=== PATIENT | male | born 1995 | race Caucasian/White ===

== ENCOUNTER 2017-01-31 10:41 | Inpatient (IN) | payer OTHER ==
[~2017-01-31] VITALS: Ht 175.3 cm; Wt 86.4 kg
[2017-01-31 13:08] LABS: MEAN CORPUSCULAR HEMOGLOBIN 33.2 pg (27.0-33.0); MEAN CORPUSCULAR HGB CONC 35.9 g/dl (32.0-36.5); MEAN CORPUSCULAR VOLUME 92.4 fl (80.0-96.0); RED CELL DISTRIBUTION WIDTH 12.8 % (11.5-14.5); WHITE BLOOD COUNT 9.4 K/mm3 (4.0-10.0)
[2017-01-31 13:34] LABS: ALBUMIN 4.2 GM/DL (3.2-5.2); ALKALINE PHOSPHATASE 120 U/L (45-117); ALT/SGPT 42 U/L (12-78); ANION GAP 8 MEQ/L (8-16); AST/SGOT 20 U/L (15-37); BILIRUBIN,DIRECT 0.1 MG/DL (0.0-0.2); BILIRUBIN,TOTAL 0.4 MG/DL (0.2-1.0); BLOOD UREA NITROGEN 11 MG/DL (7-18); CALCIUM LEVEL 8.7 MG/DL (8.5-10.1); CARBON DIOXIDE LEVEL 26 MEQ/L (21-32); CHLORIDE LEVEL 104 MEQ/L (98-107); CREATININE FOR GFR 0.89 MG/DL (0.70-1.30); GLOMERULAR FILTRATION RATE > 60.0 (>60); GLUCOSE, FASTING 95 MG/DL (70-105); POTASSIUM SERUM 4.3 MEQ/L (3.5-5.1); SODIUM LEVEL 138 MEQ/L (136-145); TOTAL PROTEIN 7.2 GM/DL (6.4-8.2)
[2017-01-31 15:10] LABS: METHADONE URINE NEGATIVE (NEGATIVE)
[2017-01-31 15:27] VITALS: BP 137/75
[2017-01-31] MEDS ORDERED: MAALOX 30 ML SUSP *UDC PO PRN (16:30)
[2017-01-31] MEDS ORDERED: ACETAMINOPHEN TAB 650MG DOSE (2X325MG) PO PRN (16:30)
[2017-01-31] MEDS ORDERED: MOM 30ML SUSPENSION UDC PO PRN (16:30)
[2017-02-01 06:22] VITALS: BP 119/79
--- NOTE | 2017-02-01 09:55 | HPEPDOC ---
Medical History and Physical Date of Admission Jan 31, 2017 at 14:19 History and Physical PCP: [facility] ATTENDING: Dr. Timoteo Fowler HPI: 21yoM admitted to [facility] for depressive disorder, being medically examined today. No acute medical complaints today. Denies any fevers, chills, weakness, fatigue, [place], CP, SOB, cough, palpitations, abdominal pain, N/V/D or changes in bowel or bladder habits. 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 ROS: As noted in HPI, otherwise 11pt ROS of systems reviewed and unremarkable. PE: GEN: 21 yo M, appears stated age. Well-nourished, well developed. No acute distress. Alert and oriented x 3. Pleasant, interactive. HEENT: Normocephalic, atraumatic. Pupils are equal, round, and reactive to light. Extraocular movements are intact. No nystagmus appreciated. Sclera are nonicteric. Conjunctiva without injection. Nose midline. Nasal turbinates without bogginess. EACs both patent BL. TMs both visualized and yuen with good cone of light, no bulging or erythema. No facial asymmetry. Moist mucous membranes. Dentition fair. Pharynx pink and moist, no cobblestoning. Neck supple , trachea midline. No lymphadenopathy or thyromegaly appreciated. CHEST: Regular rate and rhythm, +S1, +S2 LUNGS: Clear to auscultation bilaterally. No wheezes, rales, or rhonchi. Breathing appears symmetric and easy. Patient is speaking in full sentences. No accessory muscle use. ABD: Round, soft, non-tender, non-distended. +Bowel sounds throughout. No rebound or guarding. No costovertebral angle tenderness. EXT: Pulses 2+ bilaterally dorsalis pedis and radial. No lower extremity edema appreciated. SKIN: [place], dry, warm. Capillary refill <2sec. No rashes. NEURO: Alert and oriented x 3. Cranial nerves III-XII are intact. No focal deficits appreciated. EKG: Pending. A&P: 21yoM admitted to [facility] for depressive disorder 1. Psych. Plan per Psychiatry. Obtain baseline EKG to assure the safety of psychiatric medications as they can prolong the QT interval. 2. Follow up with PCP on discharge. 3. Staff member Jamie present throughout exam. Vital Signs Vital Signs Label Value Date Time Patient Temperature 96.8 degrees F 02/01/17621 Temperature Source Skin 02/01/17621 Pulse 79 02/01/17621 Respiratory Rate 16 bpm 02/01/17621 Blood Pressure Assessment 119/79 (92) 02/01/17621 Bedside Pulse Oximetry 18 % 01/31/17 1527 Bedside Pulse Oximetry 99 % 01/31/17 1450 Item Value Date Time Oxygen Delivery Method Room Air 02/01/17621 Oxygen Delivery Method Room Air 01/31/17 1450 Laboratory Data Labs 24H Laboratory Tests 2 01/31/17 12:48: Acetaminophen Level < 2.0L, Aspartate Amino Transf (AST/SGOT) 20, Alanine Aminotransferase (ALT/SGPT) 42, Alkaline Phosphatase 120H, Total Bilirubin 0.4, Direct Bilirubin 0.1, Albumin 4.2, Albumin/Globulin Ratio 1.40, Anion Gap 8, Calcium Level 8.7, Ethyl Alcohol Level < 0.003, Glomerular Filtration Rate > 60.0, Salicylates Level < 1.7L, Thyroid Stimulating Hormone (TSH) 1.770, Total Protein 7.2, Urine Amphetamines Screen NEGATIVE, Urine Benzodiazepines Screen NEGATIVE, Urine Opiates Screen NEGATIVE, Urine Barbiturates Screen NEGATIVE, Urine Cannabinoids Screen NEGATIVE, Urine Cocaine Metabolite Screen NEGATIVE, Urine Methadone Screen NEGATIVE, Urine Phencyclidine Screen NEGATIVE CBC/BMP Laboratory Tests 01/31/17 12:48 Red Blood Count 5.15, Mean Corpuscular Volume 92.4, Mean Corpuscular Hemoglobin 33.2 H, Mean Corpuscular Hemoglobin Concent 35.9, Red Cell Distribution Width 12.8 Home Medications No Active Prescriptions or Reported Meds Allergies Coded Allergies: No Known Allergies (Unverified , 01/31/17) Joselyn Vera Feb 01, 2017 09:55
--- NOTE | 2017-02-01 13:44 | HPEPDOC ---
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 Patient indicates he had planned to hang self noting, "I looked around my room for something strong enough to hold me but I couldn't find anything, then I considered cutting myself but I couldn't go through with it." Patient states this morning he was experiencing suicidal ideation with plan, did not report to work and [facility] lead section supervisor unlock the door and found him in his room at which time he reportedly admitting wanted to kill himself. Patient states he has been experiencing the following stressors: Providing financial support to parent and feeling he can no longer do so, mother going through divorce, tension with command, obligations of volunteer work, receiving article 15 for "minor negative counseling" incidents. When asked nature of counseling incidents patient states they're related to tardiness, failure to report, and another one he is unable to remember. According to [place] paperwork, patient has been concerned that his chain of command is attempting to Chapter him out and fears being discharged dishonorably. Patient also notes financial strain related to loans and has concerns about loss of rank in pay which may be associated with Chapter. Patient reports an exacerbation of the following symptoms over the past 2 weeks "suicidal ideation, depression, anxiety, hopelessness and helplessness, reduced sleep, increased appetite. Patient reports current anxiety level of 1/10, depression 6/10 (9/10 when at work), denies current suicidal and homicidal ideation, denies audiovisual hallucinations, and denies urge to engage in self-injurious behavior. Patient reports history of suicidal ideation 1 last fall, states suicidal ideation began while at [facility], indicates he had contemplated sitting in his truck in the cold to freeze. Patient endorses "some" discomfort in social settings, denies history of panic, impulse control problems and denies compulsive behavior. Patient denies history of agitation or aggression, denies unsanctioned violence, and denies having access to weapons at home. Patient denies symptoms of reexperiencing, avoidance , and hypervigilance, indicates mood is stable and denies periods of hypomania or donny. Patient reports recent increase in appetite, denies notable weight gain. Patient's indicates he experiences sleep maintenance problems, denies challenges with latency. Patient informs investigative writer while being treated at [facility] he was taking Wellbutrin XL 150 mg for approximately 5 months, indicates medication was effective and he denies medication side effects. Patient indicates he stopped taking medication approximately 3 months ago. 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 Patient informs investigative writer he feels his symptoms are directly related to work noting, I'm happy when I am off of work, when I'm volunteering, and when I'm with my girlfriend. I am miserable when I'm at work. " Patient notes that after exiting the [employer] he plans to pursue a career in criminal justice or study to be a filtering machine tender. PAST PSYCHIATRIC HISTORY: Prior Psychiatric Disorder: Adjustment disorder Outpatient Treatment: [facility], denies history of inpatient treatment Suicidal/Self injurious: Suicidal ideation with plan to freeze in car last fall denies history of SIB. Psychotropic Medication History: Wellbutrin XL ALLERGIES: Please see below. FAMILY PSYCHIATRIC HISTORY: Patient denies SOCIAL HISTORY: Patient indicates he was born and raised in the [facility], was raised by his father until age 14 and then was raised by his mother. Patient states he has one 12-year-old brother who lives with his mother, notes mother is in process of patient's stepfather. Patient denies history of abuse, trauma, or witnessing domestic violence in the home while growing up. 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 Patient is single, never , no children, has been in a relationship with his girlfriend for "a couple weeks," indicates relationship is going very well, states he is close to his mother, feels he has an adequate support system. SUBSTANCE ABUSE HISTORY: Patient denies history of substance abuse, states he rarely consumes alcohol noting he consumed half a glass of wine socially 2 weeks ago. Patient denies history of other substance use or abuse. PAST MEDICAL/SURGICAL HISTORY: Benign cyst removed from left rib cage, denies history of seizure or head injury. Patient states he has a history of fractured foot, has profile for no PT. Labs on admission indicate elevated MCH and alkaline phosphatase UDS negative VITAL SIGNS: B/P 119/79 P 79, R 16, T 96.8. MENTAL STATUS EXAMINATION: General appearance: Patient is a 21-year old male, who is pleasant, cooperative , well groomed, ambulates with steady gait, appears stated age. Speech: Spontaneous, of normal rate, rhythm, volume, coherent. Thought processes: Linear, goal-directed. Thought content: Logical, rational. Abstract reasoning and computation: Intact. Description of associations: Intact. Description of abnormal or psychotic thoughts: Denies any suicidal or homicidal ideation. Denies any auditory or visual hallucinations. Does not appear to be responding to internal stimuli. Is not expressing any bizarre or paranoid ideation.] Denies any preoccupation with violence and/or obsessions. Judgment: Poor. Insight: Poor. Orientation: Appears to be alert to situation and oriented to person, place and time of day Recent and remote memory: Intact. Attention span and concentration: Appear intact. Fund of knowledge: Adequate. 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 Patient had been active with [place] outpatient [facility] in past and was treated with Wellbutrin with good effect reported, discontinued medication and has not been seen in the outpatient environment for several months. Patient attributes his symptom and desire to to tension which in command, pending Chapter, and dissatisfaction with [employer] career. Patient is today requesting restart of antidepressant, is aware he also has sleep aid available to him if needed. Patient denies current suicidal and homicidal ideation and verbalizes awareness of how to access supportive services on unit if needed. Will monitor patient's response to medication, monitor for side effects, and will evaluate patient's safety, resolution of suicidal ideation, and discharge readiness. With regard to discharge, patient indicates he does not want to return to [place], however, verbalizes awareness that that will ultimately discharge plan will entail follow-up with [place] [facility]. PROBLEM LIST: Suicidal ideation Anxiety Depression Poor impulse control Ineffective coping Poor work satisfaction Financial strain Limited support INITIAL TREATMENT PLAN: 1. Patient was admitted on a 939 2. Complete history was obtained. 3. With patients permission, family will be contacted and database will be expanded. 4. Patients medication regimen will be reviewed and changed accordingly. 5. Patient will be provided with protected environment. 6. Patient will be treated with individual, group, and milieu therapies. 7. Patient will receive supportive psych-education. 8. Discharge planning will commence immediately. 9. Outpatient follow-up treatment will be strongly recommended. 10. The initial treatment plan will focus initially on: * Depression. * Risk for suicide ESTIMATED LENGTH OF STAY: 5-7 DAYS. TIME SPENT COUNSELING AND COORDINATING INITIAL CARE: 50 minutes. Medications No Active Prescriptions or Reported Meds Allergies Coded Allergies: No Known Allergies (Unverified , 01/31/17) Carla Mcintosh Feb 01, 2017 13:44
[2017-02-01 18:00] VITALS: BP 136/69
[2017-02-01] MEDS: buPROPion **XL** TABLET 150MG (WELLBUTRIN XL) PO SCH (20:12)
[2017-02-01] MEDS: traZODone 50 MG TAB PO PRN (20:12)
[2017-02-02 06:23] VITALS: BP 122/78
[2017-02-02] MEDS: buPROPion **XL** TABLET 150MG (WELLBUTRIN XL) PO SCH (08:14)
--- NOTE | 2017-02-02 17:04 | IPNPDOC ---
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 Patient has been visible on unit, isolates to room at times, is engaging selectively with peers, and is attending groups. At patient request, Wellbutrin XL has been restarted and patient states he feels medication is helpful in reducing symptoms of anxiety and depression. Patient rates current anxiety level as 1/10, depression 4/10, denies suicidal and homicidal ideation, denies audiovisual hallucinations and denies urge to engage in self-injurious behavior. Patient states his appetite is "balancing out," reports energy level remains low, reports challenges with concentration and focus, indicates sleep was improved last night with use of trazodone PRN. Patient states his girlfriend visited last night noting visit went well, informs science writer his family does not know he is in a psychiatric hospital. Patient reiterates today he wants to be released from the [employer], would like general under honorable discharge , does not wish to finish out his contract. Patient reiterates today that after exiting the [employer] he plans to pursue a career in criminal justice or study to be a hadoop application developer. VITAL SIGNS: See below. NEW TEST RESULTS: No new results. Labs on admission indicate elevated MCH and alkaline phosphatase. Patient has history of benign cyst removed from left rib cage, denies history of seizure or head injury. Patient states he has a history of fractured foot, has profile for no PT. UDS negative CURRENT MEDICATIONS: See below. MENTAL STATUS EXAMINATION: General appearance: Patient is a 21-year old male, who is pleasant, cooperative , well groomed, ambulates with steady gait, appears stated age. Speech: Spontaneous, of normal rate, rhythm, volume, coherent. Thought processes: Linear, goal-directed. Thought content: Logical, rational. Abstract reasoning and computation: Intact. Description of associations: Intact. Description of abnormal or psychotic thoughts: Denies any suicidal or homicidal ideation. Denies any auditory or visual hallucinations. Does not appear to be responding to internal stimuli. Is not expressing any bizarre or paranoid ideation. Denies any preoccupation with violence and/or obsessions. Judgment: Poor. Insight: Poor. Orientation: Appears to be alert to situation and oriented to person, place and time of day Recent and remote memory: Intact. Attention span and concentration: Appear intact. Fund of knowledge: Adequate. Mood: "I'm ok." Patient appears depressed, anxious, no mood lability noted Affect: Constricted.. 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 Patient has requested Wellbutrin XL restart, indicates medication is helping and he denies current side effects. Patient indicates he experienced insomnia last night related to starting Wellbutrin XL, apparently did not receive first dose until evening. Patient states he utilized trazodone for sleep , notes medication was effective, notes he experienced a.m. grogginess for approximately 20 minutes and symptoms went away. Patient denies suicidal and homicidal ideation and verbalizes awareness of how to access supportive services on the unit if needed. Will monitor patient's response to medication, monitor for side effects, and will evaluate patient's safety, resolution of suicidal ideation, and discharge readiness. With regard to discharge, patient indicates he does not want to return to [place], states today he would rather be chaptered and finish out the 5 months remaining on his contract. Patient remains aware that will ultimately discharge plan will entail follow-up with [facility]. MANAGEMENT PLAN: Continue Wellbutrin XL 150 mg po q m, trazodone 50 mg po hs PRN insomni Maintain safety precautions Patient to attend groups and participate in unit programming to develop coping strategies Engage patient in discharge planning process and arrange meeting with command to ensure safe discharge planning when appropriate Patient to follow up with [facility] upon discharge TIME SPENT: 35 minutes. Vital Signs Vital Signs Date Time Temp Pulse Resp B/P Pulse Ox O2 Delivery O2 Flow Rate FiO2 02/02/17 06:23 97.1 79 16 122/78 02/01/17 16:06 Room Air 01/31/17 15:27 18 Current Medications Current Medications Acetaminophen (Tylenol Tab) 650 mg Q6HP PRN PO HEADACHE or DISCOMFORT; Start at 16:30; Stop 03/02/17 at 16:29 Al Hydrox/Mg Hydrox/Simethicone (Mylanta) 30 ml Q4HP PRN PO HEARTBURN/ INDIGESTION; Start 01/31/17 at 16:30; Stop 03/02/17 at 16:29 Bupropion HCl (Wellbutrin Xl) 150 mg QAM PO Last administered on 02/02/17 08: 14; Start 02/01/17 at 09:00; Stop 03/03/17 at 08:59 Home Med (Med Rec Complete!) ASDIRECTED XX ; Start 01/31/17 at 15:00; Stop at 15:00; Status DC Magnesium Hydroxide (Milk Of Magnesia) 30 ml DAILYPRN PRN PO CONSTIPATION; Start 01/31/17 at 16:30; Stop 03/02/17 at 16:29 Trazodone HCl (Desyrel) 50 mg QHSP PRN PO INSOMNIA Last administered on 20:12; Start 01/31/17 at 16:30; Stop 03/02/17 at 16:29 Allergies Coded Allergies: No Known Allergies (Unverified , 01/31/17) Carla Mcintosh Feb 02, 2017 17:04
[2017-02-02 18:00] VITALS: BP 137/78
--- NOTE | 2017-02-02 22:16 | ECGEPIP ---
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
[2017-02-02] MEDS: traZODone 50 MG TAB PO PRN (23:03)
[2017-02-03 06:25] VITALS: BP 133/67
[2017-02-03] MEDS: buPROPion **XL** TABLET 150MG (WELLBUTRIN XL) PO SCH (08:40)
--- NOTE | 2017-02-03 17:04 | IPN ---
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 He is diagnosed with adjustment-related disorder to rule out depressive disorder. Today is his day four of inpatient hospital admission and he is currently being prescribed Wellbutrin XR 150 mg orally daily. In addition to medication, he receives therapeutic programming, including group and activities. He is seen and his medications reviewed. He states that the Wellbutrin is working really well. No major complaints are presented today. He reports having slept well during the night. "I'm feeling increasingly better on my medication." OBSERVATION: The patient's vital signs are stable. He is groomed and appropriately dressed. His speech is fluent and thought process is coherent and goal directed. No evidence of psychosis and his mood is noted to be less depressed. No medication related adverse events. ASSESSMENT: He currently is tolerating and responding positively to treatment. However, further inpatient stabilization is required. PLAN: He will be continued on Wellbutrin with ongoing reviews and adjustments as may be clinically indicated. ENRIQUETA
[2017-02-03 18:00] VITALS: BP 121/56
[2017-02-03] MEDS: traZODone 50 MG TAB PO PRN (23:35)
[2017-02-04 06:31] VITALS: BP 113/61
[2017-02-04] MEDS: buPROPion **XL** TABLET 150MG (WELLBUTRIN XL) PO SCH (08:02)
[2017-02-04 18:00] VITALS: BP 140/76
--- NOTE | 2017-02-04 20:39 | IPN ---
DATE: 02/04/2017 SUBJECTIVE: The patient is seen today. This is his fifth day of inpatient hospitalization. His treatment is reviewed. He remains on Wellbutrin XR 150 mg orally daily for treatment of depression. In addition, he is offered therapeutic programming, including group and activities. He states, "I am doing alright." However, he still reports occasional trouble sleeping. He states that his mood is slightly depressed, but comparatively better than previous. He expresses concern about being discharged back to the [facility] because of possibly facing disciplinary action. OBSERVATION: He is alert, calm, cooperative. His speech is fluent. He is appropriately dressed and groomed. Mood is notably less depressed. He denies suicidal thoughts, plan or intent. No evidence of homicidal ideation. No psychotic features evident. ASSESSMENT: He continues to respond to treatment; however, he seems quite concerned about possible disciplinary issues that he may be facing at his command upon discharged. . PLAN: Current treatment to be continued. Will recommend chain of command meeting to address patient's concerns. ENRIQUETA
[2017-02-05 06:43] VITALS: BP 116/65
[2017-02-05] MEDS: buPROPion **XL** TABLET 150MG (WELLBUTRIN XL) PO SCH (09:01)
[2017-02-05 18:00] VITALS: BP 136/83
[2017-02-05] MEDS ORDERED: hydrOXYzine 50 MG TAB PO PRN ×2 (18:45→21:00)
--- NOTE | 2017-02-05 18:50 | IPNPDOC ---
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 Patient has been more visible on unit, engages with select peers, and is attending groups. Patient indicates he is responding well to Wellbutrin XL and denies medication side effects. Patient states today that trazodone is not effective for sleep maintenance at current dose, indicates he is also experiencing a.m. grogginess, is requesting new sleep aid medication trial. Patient rates current anxiety level as 1/10, depression 3/10, denies suicidal and homicidal ideation, denies audiovisual hallucinations and denies urge to engage in self-injurious behavior. Patient states his appetite is stabilizing, reports energy level remain low, reports some improvement concentration and focus. Patient states his girlfriend continues to visit nightly noting girlfriend's ex-boyfriend was recently admitted to Hospital due to "he just can' t stay away from her and was hoping to have contact with her when she visits," states he still has not had contact with family to inform them that he is in the hospital. Patient states again today he wants to be released from the [employer], would like general under honorable discharge, does not wish to finish out his contract. Patient reiterates today that after exiting the [employer] he plans to pursue a career in criminal justice or study to be a mathematics teacher. VITAL SIGNS: See below. NEW TEST RESULTS: No new results. Labs on admission indicate elevated MCH and alkaline phosphatase. Patient has history of benign cyst removed from left rib cage, denies history of seizure or head injury. Patient states he has a history of fractured foot, has profile for no PT. 02/02/17 Normal sinus rhythm Nonspecific T wave abnormality Comparison tracing not on file UDS negative CURRENT MEDICATIONS: See below. MENTAL STATUS EXAMINATION: General appearance: Patient is a 21-year old male, who is pleasant, cooperative , well groomed, ambulates with steady gait, appears stated age. Speech: Spontaneous, of normal rate, rhythm, volume, coherent. Thought processes: Linear, goal-directed. Thought content: Logical, rational. Abstract reasoning and computation: Intact. Description of associations: Intact. Description of abnormal or psychotic thoughts: Denies any suicidal or homicidal ideation. Denies any auditory or visual hallucinations. Does not appear to be responding to internal stimuli. Is not expressing any bizarre or paranoid ideation. Denies any preoccupation with violence and/or obsessions. Judgment: Limited, some improvement noted Insight: Limited, some improvement noted Orientation: Appears to be alert to situation and oriented to person, place and time of day Recent and remote memory: Intact. Attention span and concentration: Appear intact. Fund of knowledge: Adequate. 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 Patient has been restarted on Wellbutrin XL, indicates medication is effective, denies need for dosing adjustment, and denies medication side effects. Patient is requesting Sleep-Aid change in effort to improve maintenance , notes he wakes up several times during the night. Will initiate hydroxyzine trial and will discontinue trazodone at patient's request due to reported a.m. side effect of grogginess. Patient denies suicidal and homicidal ideation and verbalizes awareness of how to access supportive services on the unit if needed. Will monitor patient's response to medication, monitor for side effects , and will evaluate patient's safety, resolution of suicidal ideation, and discharge readiness. With regard to discharge, patient indicates he does not want to return to [place], states today he would rather be chaptered and finish out the 5 months remaining on his contract. Patient remains aware that will ultimately discharge plan will entail follow-up with [place] outpatient [facility]. MANAGEMENT PLAN: Discontinue trazodone. Initiate med trial hydroxyzine 50 mg po hs PRN anxiety/sleep. Continue Wellbutrin XL 150 mg po q m Maintain safety precautions Patient to attend groups and participate in unit programming to develop coping strategies Engage patient in discharge planning process and arrange meeting with command to ensure safe discharge planning when appropriate Patient to follow up with [facility] upon discharge TIME SPENT: 35 minutes. Vital Signs Vital Signs Date Time Temp Pulse Resp B/P Pulse Ox O2 Delivery O2 Flow Rate FiO2 02/05/17 18:00 98.8 90 18 136/83 02/01/17 16:06 Room Air 01/31/17 15:27 18 Current Medications Current Medications Acetaminophen (Tylenol Tab) 650 mg Q6HP PRN PO HEADACHE or DISCOMFORT; Start at 16:30; Stop 03/02/17 at 16:29 Al Hydrox/Mg Hydrox/Simethicone (Mylanta) 30 ml Q4HP PRN PO HEARTBURN/ INDIGESTION; Start 01/31/17 at 16:30; Stop 03/02/17 at 16:29 Bupropion HCl (Wellbutrin Xl) 150 mg QAM PO Last administered on 02/05/17 09:01 ; Start 02/01/17 at 09:00; Stop 03/03/17 at 08:59 Home Med (Med Rec Complete!) ASDIRECTED XX ; Start 01/31/17 at 15:00; Stop at 15:00; Status DC Hydroxyzine HCl (Atarax) 50 mg QHSP PRN PO anxiety/sleep; Start 02/05/17 at 18: 45; Stop 03/07/17 at 18:44; Status UNV Magnesium Hydroxide (Milk Of Magnesia) 30 ml DAILYPRN PRN PO CONSTIPATION; Start 01/31/17 at 16:30; Stop 03/02/17 at 16:29 Trazodone HCl (Desyrel) 50 mg QHSP PRN PO INSOMNIA Last administered on 23:35; Start 01/31/17 at 16:30; Stop 02/05/17 at 18:41; Status DC Allergies Coded Allergies: No Known Allergies (Unverified , 01/31/17) Carla Mcintosh Feb 05, 2017 18:50
[2017-02-06 06:19] VITALS: BP 139/63
[2017-02-06] MEDS: buPROPion **XL** TABLET 150MG (WELLBUTRIN XL) PO SCH (09:01)
--- NOTE | 2017-02-06 16:54 | IPNPDOC ---
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 Patient has been more visible on unit, engages with select peers, and is attending groups. Patient indicates he is responding well to Wellbutrin XL and denies medication side effects. Patient states he slept well last night, did not trial hydroxyzine, is aware medication is available to him for sleep if needed. Patient rates current anxiety level as 4/10 which she attributes to impending discharge, depression/10, denies suicidal and homicidal ideation, denies audiovisual hallucinations, denies urge to engage in self-injurious behavior. Patient states appetite has stabilized, reports improvement to energy level denies challenges with concentration and focus. Patient indicates girlfriend continues to visit nightly and states visits go well, denies new issues pertaining to girlfriend and her ex-boyfriend, is still declining to inform family that he is in the psychiatric hospital. Patient states again today he wants to be released from the [employer], would like general under honorable discharge, does not wish to finish out his contract. Patient adds he would prefer to be discharged so that he can visit with family in [place] before extra duty is assigned to him on Sunday. Patient is aware that discharge is likely to occur on in order to provide ample time for [place] to complete safety check, reconnect patient with outpatient behavioral health services, and complete IOP evaluation. VITAL SIGNS: See below. NEW TEST RESULTS: No new results. Labs on admission indicate elevated MCH and alkaline phosphatase. Patient has history of benign cyst removed from left rib cage, denies history of seizure or head injury. Patient states he has a history of fractured foot, has profile for no PT. 02/02/17 EKG Normal sinus rhythm Nonspecific T wave abnormality Comparison tracing not on file UDS negative CURRENT MEDICATIONS: See below. MENTAL STATUS EXAMINATION: General appearance: Patient is a 21-year old male, who is pleasant, cooperative , well groomed, ambulates with steady gait, appears stated age. Speech: Spontaneous, of normal rate, rhythm, volume, coherent. Thought processes: Linear, goal-directed. Thought content: Logical, rational. Abstract reasoning and computation: Intact. Description of associations: Intact. Description of abnormal or psychotic thoughts: Denies any suicidal or homicidal ideation. Denies any auditory or visual hallucinations. Does not appear to be responding to internal stimuli. Is not expressing any bizarre or paranoid ideation. Denies any preoccupation with violence and/or obsessions. Judgment: Fair, some improvement noted Insight: Limited, some improvement noted Orientation: Is alert to situation and oriented to person, place and time of day Recent and remote memory: Intact. Attention span and concentration: Appear intact. Fund of knowledge: Adequate. 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 Patient has been restarted on Wellbutrin XL, indicates medication is effective, denies need for dosing adjustment, and denies medication side effects. At patient request trazodone was discontinued and hydroxyzine was initiated yesterday, patient states he did not utilize hydroxyzine for sleep last night due to lack of need noting he slept well with no nighttime waking and no nightmare symptoms. Patient denies suicidal and homicidal ideation and verbalizes awareness of how to access supportive services on the unit if needed. Will monitor patient's response to medication, monitor for side effects , and will evaluate patient's safety, resolution of suicidal ideation, and discharge readiness. With regard to discharge, patient states he does not want to return to [place], reiterates he would rather be chaptered and finish out the 5 months remaining on his contract. Patient remains aware that will ultimately discharge plan will entail follow-up with [place] outpatient [facility], is aware discharge is tentatively planned for . MANAGEMENT PLAN: Continue hydroxyzine 50 mg po hs PRN anxiety/sleep. Continue Wellbutrin XL 150 mg po q m Maintain safety precautions Patient to attend groups and participate in unit programming to develop coping strategies Engage patient in discharge planning process and arrange meeting with command to ensure safe discharge planning when appropriate Patient to follow up with [facility] upon discharge TIME SPENT: 35 minutes. Vital Signs Vital Signs Date Time Temp Pulse Resp B/P Pulse Ox O2 Delivery O2 Flow Rate FiO2 02/06/17 06:19 97.6 69 18 139/63 02/01/17 16:06 Room Air 01/31/17 15:27 18 Current Medications Current Medications Acetaminophen (Tylenol Tab) 650 mg Q6HP PRN PO HEADACHE or DISCOMFORT; Start at 16:30; Stop 03/02/17 at 16:29 Al Hydrox/Mg Hydrox/Simethicone (Mylanta) 30 ml Q4HP PRN PO HEARTBURN/ INDIGESTION; Start 01/31/17 at 16:30; Stop 03/02/17 at 16:29 Bupropion HCl (Wellbutrin Xl) 150 mg QAM PO Last administered on 02/06/17 09:01 ; Start 02/01/17 at 09:00; Stop 03/03/17 at 08:59 Home Med (Med Rec Complete!) ASDIRECTED XX ; Start 01/31/17 at 15:00; Stop at 15:00; Status DC Hydroxyzine HCl (Atarax) 50 mg QHSP PRN PO anxiety/sleep; Start 02/05/17 at 18: 45; Stop 02/05/17 at 18:51; Status DC Hydroxyzine HCl (Atarax) 50 mg QHSP PRN PO anxiety/sleep; Start 02/05/17 at 21: 00; Stop 03/07/17 at 20:59 Magnesium Hydroxide (Milk Of Magnesia) 30 ml DAILYPRN PRN PO CONSTIPATION; Start 01/31/17 at 16:30; Stop 03/02/17 at 16:29 Trazodone HCl (Desyrel) 50 mg QHSP PRN PO INSOMNIA Last administered on 23:35; Start 01/31/17 at 16:30; Stop 02/05/17 at 18:41; Status DC Allergies Coded Allergies: No Known Allergies (Unverified , 01/31/17) Carla Mcintosh Feb 06, 2017 16:54
[2017-02-06 18:00] VITALS: BP 140/80
[2017-02-07 06:14] VITALS: BP 129/69
[2017-02-07] MEDS: buPROPion **XL** TABLET 150MG (WELLBUTRIN XL) PO SCH (08:43)
--- NOTE | 2017-02-07 10:15 | IPNPDOC ---
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 Patient remains visible on unit, engages with select peers, and is attending groups. Patient indicates he is responding well to Wellbutrin XL and denies medication side effects. Patient states he slept well last night, did not trial hydroxyzine, is aware medication is available to him for sleep if needed. Patient rates current anxiety level as 4/10 which he attributes to impending discharge, depression 3/10, denies suicidal and homicidal ideation, denies audiovisual hallucinations, denies urge to engage in self-injurious behavior. Patient states appetite is stable, indicates he is been sleeping well without use of sleep aid, reports improvement to energy level denies challenges with concentration and focus. Patient states again today he wants to be released from the [employer], would like general under honorable discharge, does not wish to finish out his contract. 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 VITAL SIGNS: See below. NEW TEST RESULTS: No new results. Labs on admission indicate elevated MCH and alkaline phosphatase. Patient has history of benign cyst removed from left rib cage, denies history of seizure or head injury. Patient states he has a history of fractured foot, has profile for no PT. 02/02/17 EKG Normal sinus rhythm Nonspecific T wave abnormality Comparison tracing not on file UDS negative CURRENT MEDICATIONS: See below. MENTAL STATUS EXAMINATION: General appearance: Patient is a 21-year old male, who is pleasant, cooperative , well groomed, makes fair eye contact, ambulates with steady gait, appears stated age. Speech: Spontaneous, of normal rate, rhythm, volume, coherent. Thought processes: Linear, goal-directed. Thought content: Logical, rational. Abstract reasoning and computation: Intact. Description of associations: Intact. Description of abnormal or psychotic thoughts: Denies any suicidal or homicidal ideation. Denies any auditory or visual hallucinations. Does not appear to be responding to internal stimuli. Is not expressing any bizarre or paranoid ideation. Denies any preoccupation with violence and/or obsessions. Judgment: Adequate, some improvement noted Insight: Fair, some improvement noted Orientation: Is alert to situation and oriented to person, place and time of day Recent and remote memory: Intact. Attention span and concentration: Appear intact. Fund of knowledge: Adequate. 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 Patient has been restarted on Wellbutrin XL, indicates medication is effective, denies need for dosing adjustment, and denies medication side effects. At patient request trazodone was discontinued and hydroxyzine was initiated yesterday, patient states he has not utilize hydroxyzine for sleep due to lack of need. Patient denies suicidal and homicidal ideation and verbalizes awareness of how to access supportive services on the unit if needed. Will monitor patient's response to medication, monitor for side effects , and will evaluate patient's safety and discharge readiness. With regard to discharge, patient states he does not want to return to [facility], reiterates he would rather be chaptered and finish out the 5 months remaining on his contract, verbalizes awareness that chain of command meeting is scheduled for tomorrow morning and discharge is likely to follow if patient remains stable. Patient is aware aware that he will return to [facility] for safety check, to resume outpatient behavioral health treatment, and for IOP evaluation if deemed appropriate by [facility]. MANAGEMENT PLAN: Continue hydroxyzine 50 mg po hs PRN anxiety/sleep. Continue Wellbutrin XL 150 mg po q m Maintain safety precautions Patient to attend groups and participate in unit programming to develop coping strategies Engage patient in discharge planning process and arrange meeting with command to ensure safe discharge planning when appropriate Patient to follow up with [facility] upon discharge TIME SPENT: 25 minutes. Vital Signs Vital Signs Date Time Temp Pulse Resp B/P Pulse Ox O2 Delivery O2 Flow Rate FiO2 02/07/17 06:14 99.2 74 18 129/69 02/01/17 16:06 Room Air Current Medications Current Medications Acetaminophen (Tylenol Tab) 650 mg Q6HP PRN PO HEADACHE or DISCOMFORT; Start at 16:30; Stop 03/02/17 at 16:29 Al Hydrox/Mg Hydrox/Simethicone (Mylanta) 30 ml Q4HP PRN PO HEARTBURN/ INDIGESTION; Start 01/31/17 at 16:30; Stop 03/02/17 at 16:29 Bupropion HCl (Wellbutrin Xl) 150 mg QAM PO Last administered on 02/07/17 08:43 ; Start 02/01/17 at 09:00; Stop 03/03/17 at 08:59 Home Med (Med Rec Complete!) ASDIRECTED XX ; Start 01/31/17 at 15:00; Stop at 15:00; Status DC Hydroxyzine HCl (Atarax) 50 mg QHSP PRN PO anxiety/sleep; Start 02/05/17 at 18: 45; Stop 02/05/17 at 18:51; Status DC Hydroxyzine HCl (Atarax) 50 mg QHSP PRN PO anxiety/sleep; Start 02/05/17 at 21: 00; Stop 03/07/17 at 20:59 Magnesium Hydroxide (Milk Of Magnesia) 30 ml DAILYPRN PRN PO CONSTIPATION; Start 01/31/17 at 16:30; Stop 03/02/17 at 16:29 Trazodone HCl (Desyrel) 50 mg QHSP PRN PO INSOMNIA Last administered on 23:35; Start 01/31/17 at 16:30; Stop 02/05/17 at 18:41; Status DC Allergies Coded Allergies: No Known Allergies (Unverified , 01/31/17) Carla Mcintosh Feb 07, 2017 10:15
[2017-02-07 18:03] VITALS: BP 129/75
[2017-02-08 06:37] VITALS: BP 115/67
--- NOTE | 2017-02-08 09:02 | DS.PDOC ---
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 Patient states he has been experiencing the following stressors: Providing financial support to parent and feeling he can no longer do so, mother going through divorce, tension with command, obligations of volunteer work, receiving article 15 for "minor negative counseling" incidents. When asked nature of counseling incidents patient states they're related to tardiness, failure to report, and another one he is unable to remember. According to [facility] paperwork, patient has been concerned that his chain of command is attempting to Chapter him out and fears being discharged dishonorably. Patient also notes financial strain related to loans and has concerns about loss of rank in pay which may be associated with Chapter. Patient reports an exacerbation of the following symptoms over the past 2 weeks "suicidal ideation, depression, anxiety, hopelessness and helplessness, reduced sleep, increased appetite. Patient reports current anxiety level of 1/10, depression 6/10 (9/10 when at work), denies current suicidal and homicidal ideation, denies audiovisual hallucinations, and denies urge to engage in self-injurious behavior. Patient reports history of suicidal ideation 1 last fall, states suicidal ideation began while at [facility], indicates he had contemplated sitting in his truck in the cold to freeze. Patient endorses "some" discomfort in social settings, denies history of panic, impulse control problems and denies compulsive behavior. Patient denies history of agitation or aggression, denies unsanctioned violence, and denies having access to weapons at home. Patient denies symptoms of reexperiencing, avoidance , and hypervigilance, indicates mood is stable and denies periods of hypomania or donny. Patient reports recent increase in appetite, denies notable weight gain. Patient's indicates he experiences sleep maintenance problems, denies challenges with latency. 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 Patient indicates he stopped taking medication approximately 3 months ago. 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 I am miserable when I'm at work. " Patient notes that after exiting the [employer] he plans to pursue a career in criminal justice or study to be a tire mold tester. PAST PSYCHIATRIC HISTORY: Prior Psychiatric Disorder: Adjustment disorder Outpatient Treatment: [facility], denies history of inpatient treatment Suicidal/Self injurious: Suicidal ideation with plan to freeze in car last fall denies history of SIB. Psychotropic Medication History: Wellbutrin XL MEDICAL HISTORY: Labs on admission indicate elevated MCH and alkaline phosphatase. Patient has history of benign cyst removed from left rib cage, denies history of seizure or head injury. Patient states he has a history of fractured foot, has profile for no PT. 02/02/17 EKG Normal sinus rhythm Nonspecific T wave abnormality Comparison tracing not on file UDS negative FAMILY PSYCHIATRIC HISTORY: Patient denies SOCIAL HISTORY: Patient indicates he was born and raised in the [facility], was raised by his father until age 14 and then was raised by his mother. Patient states he has one 12-year-old brother who lives with his mother, notes mother is in process of patient's stepfather. Patient denies history of abuse, trauma, or witnessing domestic violence in the home while growing up. 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 Patient is single, never , no children, has been in a relationship with his girlfriend for "a couple weeks," indicates relationship is going very well, states he is close to his mother, feels he has an adequate support system. SUBSTANCE ABUSE HISTORY: Patient denies history of substance abuse, states he rarely consumes alcohol noting he consumed half a glass of wine socially 2 weeks ago. Patient denies history of other substance use or abuse. LEGAL HISTORY: Patient denies TREATMENT PROGRESS ON UNIT: Patient has adjusted well to unit, has been visible , engaged with select peers, and has participated well in unit programming. At time of admission patient indicated he had been previously prescribed Wellbutrin XL by [facility] with good effect and he requested medication restart. Patient indicates Wellbutrin XL is effective in improving mood noting he feels "a lot better" since med restart, denies medication side effects. Patient denies symptoms of depression, reports low level anxiety only as related to discharge, denies audiovisual hallucinations, denies urge to engage in self-injurious behavior. Patient was trialed on trazodone and hydroxyzine for sleep during inpatient stay. Patient reported a.m. grogginess as side effect of trazodone, indicated hydroxyzine worked well. Patient has also slept well without sleep aid and denies need for prescription at time of discharge citing lack of need adding he utilizes melatonin for sleep in [place] as needed. Patient indicates appetite has stabilized, reports improvement to energy and concentration and focus, denies challenges with sleep. Patient denies suicidal and homicidal ideation and is able to verbalize concrete strategies for mitigating symptoms of depression and suicidal thinking should they reemerge. Patient has consistently stated during his stay that he would like to be released from the [employer] and would like general under honorable discharge, does not wish to finish out his contract. Patient indicates he is prepared for discharge today, chain of command meeting has been completed with no concerns related to discharge verbalized, and patient is aware he will be returning to [facility] to complete safety check and resume outpatient psychotherapy and medication management services through [facility]. MENTAL STATUS EXAMINATION ON DISCHARGE: General appearance: Patient is a 21-year old male, who is pleasant, cooperative , well groomed, makes good eye contact, ambulates with steady gait, appears stated age. Speech: Spontaneous, of normal rate, rhythm, volume, coherent. Thought processes: Linear, goal-directed. Thought content: Logical, rational. Abstract reasoning and computation: Intact. Description of associations: Intact. Description of abnormal or psychotic thoughts: Denies suicidal or homicidal ideation. Denies any auditory or visual hallucinations. Does not appear to be responding to internal stimuli. Is not expressing any bizarre or paranoid ideation. Denies any preoccupation with violence and/or obsessions. Judgment: Adequate, has improved during treatment Insight: Adequate, has improved during treatment Orientation: Is alert to situation and oriented to person, place and time of day Recent and remote memory: Intact. Attention span and concentration: Adequate Fund of knowledge: Adequate. Mood: "I'm feeling fine, just nervous about going back to [facility]; I just really want to get out of the [employer]." Patient does not appear depressed or anxious, no mood lability noted Affect: Mild constriction but brightens frequently and appropriately, congruent with mood CONDITION ON DISCHARGE: Stable, no suicidal or homicidal ideation DIAGNOSES ON DISCHARGE: Adjustment disorder with depressed mood, rule out MDD MEDICATIONS ON DISCHARGE: See below FOLLOW UP PLAN: Continue Wellbutrin XL 150 mg po q am Patient to discharge today and to be transported by command back to [facility] for safety check and to resume outpatient psychotherapy and medication management services Recommendation made for patient to be evaluated for IOP Patient to follow-up with [facility] within 5-7 days of discharge The amount of time spent in the coordination of care for this patient was approximately 35 minutes Vital Signs/I&Os Vital Signs Date Time Temp Pulse Resp B/P Pulse Ox O2 Delivery O2 Flow Rate FiO2 02/08/17 06:37 99.2 75 18 115/67 Medications Scheduled Bupropion Hcl (Bupropion HCl Xl) 150 Mg Tab #7 150 MG PO QAM DEPRESSION Allergies Coded Allergies: No Known Allergies (Unverified , 01/31/17) Carla Mcintosh Feb 08, 2017 09:02
[2017-02-08] MEDS: buPROPion **XL** TABLET 150MG (WELLBUTRIN XL) PO SCH (09:11)
[2017-02-08] MEDS ORDERED: BUPR150T3 PO (10:15)
== END 2017-02-08 12:00 | disposition home or self-care (01) | DRG 881 ==
LOC: M ED 13:27 → M ED INP 14:19 → M PSY 15:25
PROVIDERS: ADMIT Psychiatry & Neurology Psychiatry; ATTEND Psychiatry & Neurology Psychiatry
DX: F43.21 Adjustment disorder with depressed mood (principal); F32.9 Major depressive disorder, single episode, unspecified

== ENCOUNTER 2017-04-19 18:59 | Emergency (ER) | payer OTHER ==
[~2017-04-19] VITALS: Ht 177.8 cm; Wt 89.6 kg
[~2017-04-19 18:59] MED LIST: BUPR150T3 PO
[2017-04-19 20:53] LABS: MEAN CORPUSCULAR HEMOGLOBIN 32.7 pg (27.0-33.0); MEAN CORPUSCULAR HGB CONC 35.7 g/dl (32.0-36.5); MEAN CORPUSCULAR VOLUME 91.5 fl (80.0-96.0); RED CELL DISTRIBUTION WIDTH 13.2 % (11.5-14.5); WHITE BLOOD COUNT 10.4 K/mm3 (4.0-10.0)
[2017-04-19 21:08] LABS: METHADONE URINE NEGATIVE (NEGATIVE)
[2017-04-19 21:19] LABS: ALBUMIN 4.7 GM/DL (3.2-5.2); ALBUMIN/GLOBULIN RATIO 1.52 (1.00-1.93); ALKALINE PHOSPHATASE 112 U/L (45-117); ALT/SGPT 38 U/L (12-78); ANION GAP 7 MEQ/L (8-16); AST/SGOT 20 U/L (15-37); BILIRUBIN,DIRECT 0.2 MG/DL (0.0-0.2); BILIRUBIN,TOTAL 0.6 MG/DL (0.2-1.0); BLOOD UREA NITROGEN 6 MG/DL (7-18); CALCIUM LEVEL 8.9 MG/DL (8.5-10.1); CARBON DIOXIDE LEVEL 28 MEQ/L (21-32); CHLORIDE LEVEL 101 MEQ/L (98-107); CREATININE FOR GFR 1.07 MG/DL (0.70-1.30); GLOMERULAR FILTRATION RATE > 60.0 (>60); GLUCOSE, FASTING 90 MG/DL (70-105); POTASSIUM SERUM 3.4 MEQ/L (3.5-5.1); SODIUM LEVEL 136 MEQ/L (136-145); TOTAL PROTEIN 7.8 GM/DL (6.4-8.2)
[2017-04-19] MEDS ORDERED: POTASSIUM CHLORIDE 10 MEQ SR TABLET PO ONE (21:30)
[2017-04-19 22:32] VITALS: BP 139/87
== END 2017-04-19 22:34 | disposition home or self-care (01) ==
LOC: M ED 19:57
DX: F43.0 Acute stress reaction (principal); F32.9 Major depressive disorder, single episode, unspecified; Z79.899 Other long term (current) drug therapy
CPT/HCPCS: 80048; 80076; 80306; 84443; 85027; 99284; G0480